=== PATIENT | female | born 1985 | race Caucasian/White ===

== ENCOUNTER 2018-07-23 09:12 | Day surgery (SDC) | payer OTHER ==
[~2018-07-23 09:12] MED LIST: ZYRTEC10 MG PO
[2018-07-23] MEDS ORDERED: DOXYCYCLINE HY100 MG PO (14:36)
[2018-07-23] MEDS ORDERED: NAPROXEN500 MG PO (14:37)
== END 2018-07-23 16:35 | disposition home or self-care (01) ==
LOC: CIR.AMB 09:12
DX: O02.1 Missed abortion (principal); Z3A.01 Less than 8 weeks gestation of pregnancy

== ENCOUNTER → 2018-07-29 08:56 | Outpatient (CLI) | payer OTHER ==
[~2018-07-29 08:56] MED LIST changes: +DOXYCYCLINE HY100 MG PO; +NAPROXEN500 MG PO
== END | disposition home or self-care (01) ==
LOC: LAB 08:56
DX: O02.0 Blighted ovum and nonhydatidiform mole (principal); O02.1 Missed abortion; E03.8 Other specified hypothyroidism